=== PATIENT | male | born 1960 | race Caucasian/White ===

== ENCOUNTER 2022-05-10 15:43 | Emergency (ER) | payer OTHER ==
[~2022-05-10] VITALS: Ht 170.2 cm; Wt 99.8 kg
[~2022-05-10 15:43] MED LIST: CEPH500 PO; CIPR500 PO; IBUP800 PO; OXYACE5T PO; PRED10 PO
== END 2022-05-10 19:40 | disposition home or self-care (01) ==
LOC: ER 15:43
DX: S61.411A Laceration without foreign body of right hand, initial encounter (principal); S80.01XA Contusion of right knee, initial encounter; S30.810A Abrasion of lower back and pelvis, initial encounter; M79.631 Pain in right forearm; V28.0XXA Motorcycle driver injured in noncollision transport accident in nontraffic accident, initial encounter
CPT/HCPCS: 12002; 73090; 73562-RT; 99284-25; A9270